=== PATIENT | male | born 1990 | race American Indian/Alaskan Native ===

== ENCOUNTER 2019-07-05 16:19 | Emergency (ER) | payer SELFPAY ==
[2019-07-05] MEDS ORDERED: ACETAMINOPHEN 500 MG TAB PO ONE (19:30)
[2019-07-05] MEDS ORDERED: IBUPROFEN 600 MG TAB PO ONE (19:30)
--- NOTE | 2019-07-05 21:04 | Cat Scan Report ---
CT CERVICAL SPINE: 07/05/2019 INDICATION / CLINICAL INFORMATION: pain, traumatic. COMPARISON: None available. FINDINGS: CT images of the cervical spine were obtained. Images are evaluated in the axial, coronal, and sagit gabriela planes. There is no evidence of acute abnormality. Vertebral body alignment and height is normal. There is no evidence of osseous canal or foraminal narrowing. CRANIOCERVICAL JUNCTION: Unremarkable. PARASPINAL STRUCTURES: No significant abnormality. 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 There is anterior positioning of a flattened and deformed right condylar head with a chronic appearance. IMPRESSION: No acute abnormality. All CT scans at this location are performed using dose reduction to ALARA by means of automated expos ure control. Signer Name: Kai Garg MD Signed: 07/05/2019 9:00 PM Workstation Name: [id number]
--- NOTE | 2019-07-05 21:30 | Emergency Department Report ---
ED Neck Pain/Injury HPI - General Chief Complaint: Neck Pain/Injury Stated Complaint: WEIGHT FELL ON NECK/PAIN Mode of arrival: Ambulatory Limitations: No Limitations - History of Present Illness Initial Comments: Patient is a 29-year-old -[place] male with no past medical history who presents to the ED with complaint of acute onset persistent neck pain after metallic weights but he was lifting at the gymnasium dropped onto his neck 2 weeks ago. Patient states that the pain has been persistent and this patient in the last 5 days the pain has worsened especially with any activity range of m otion. Patient denies loss of consciousness, headache, nausea, vomiting, dizziness, change in vision, fall, chest pain, shortness of breath, numbness and tingling or weakness of upper extremities bilaterally. MD Complaint: neck pain, neck injury, other (Metallic weights fell on neck 2 weeks ago when doing weight lifting) -: Sudden, week(s) (2) Place: [facility] Radiation: right lateral, left lateral Severity: moderate Severity scale (0 -10): 6 Quality: sharp, aching Consistency: constant Improves With: none Worsens With: none Context: direct blow (Metallic weights hit him on his neck when doing weight lifting), lifting Associated Symptoms: none. denies: headache, fever, numbness, tingling, weakness, vertigo, difficulty walking, swollen glands, difficulty swallowing, nausea, vomiting Treatments Prior to Arrival: none - Related Data Previous Rx's Medication Instructions Recorded Last Taken Type Cyclobenzaprine [Flexeril] 10 mg PO Q8H PRN #21 tablet 07/05/19 Unknown Rx Naproxen 500 mg PO Q12H PRN #24 tablet 07/05/19 Unknown Rx Allergies Allergy/AdvReac Type Severity Reaction Status Date / Time No Known Allergies Allergy Unverified 07/05/19 16:34 ED Review of Systems ROS: Stated complaint: WEIGHT FELL ON NECK/PAIN Other details as noted in HPI Constitutional: denies: chills, fever Eyes: denies: eye pain, eye discharge, vision change ENT: denies: ear pain, throat pain Respiratory: denies: cough, shortness of breath, wheezing Cardiovascular: denies: chest pain, palpitations Endocrine: no symptoms reported Gastrointestinal: denies: abdominal pain, nausea, diarrhea Genitourinary: denies: urgency, dysuria Musculoskeletal: arthralgia (neck pain), myalgia. denies: back pain, joint swe lling Skin: denies: rash, lesions Neurological: denies: headache, weakness, paresthesias, confusion, vertigo Psychiatric: denies: anxiety, depression Hematological/Lymphatic: denies: easy bleeding, easy bruising ED Past Medical Hx - Past Medical History Previous Medical History?: No - Surgical History Additional Surgical History: LEFT EYE SURGERY - Social History Smoking Status: Current Every Day Smoker Substance Use Type: Alcohol - Medications Home Medications: Home Medications Medication Instructions Recorded Confirmed Last Taken Type Cyclobenzaprine [Flexeril] 10 mg PO Q8H PRN #21 tablet 07/05/19 Unknown Rx Naproxen 500 mg PO Q12H PRN #24 tablet 07/05/19 Unknown Rx ED Physical Exam - General Limitations: No Limitations General appearance: alert, in no apparent distress - Head Head exam: Present: atraumatic, normocephalic, normal inspection - Eye Eye exam: Present: normal appearance, PERRL, EOMI Pupils: Present: normal accommodation - ENT ENT exam: Present: normal exam, normal orophraynx, mucous membranes moist, TM's normal bilaterally, normal external ear exam - Neck Neck exam: Present: normal inspection, tenderness (palpable cervical paraspinal musculoskeletal tenderness with limited range of motion due to pain). Absent: meningismus, full ROM (due to pain), lymphadenopathy, thyromegaly - Respiratory Respiratory exam: Present: normal lung sounds bilaterally. Absent: respiratory distress, wheezes, rales, rhonchi, stridor, chest wall tenderness, accessory muscle use, decreased breath sounds - Cardiovascular Cardiovascular Exam: Present: regular rate, normal rhythm, normal heart sounds. Absent: systolic murmur, diastolic murmur, rubs, gallop - GI/Abdominal GI/Abdominal exam: Present: soft, normal bowel sounds. Absent: distended, tenderness, guarding, hyperactive bowel sounds, hypoactive bowel sounds, organomegaly, mass - Rectal Rectal exam: Present: deferred - Extremities Exam Extremities exam: Present: normal inspection, full ROM, normal capillary refill - Back Exam Back exam: Present: normal inspection, full ROM - Neurological Exam Neurological exam: Present: alert, oriented X3, CN II-XII intact, normal gait, reflexes normal - Psychiatric Psychiatric exam: Present: normal affect, normal mood - Skin Skin exam: Present: warm, dry, intact, normal color. Absent: rash ED Course Vital Signs 07/05/19 17:19 Temperature 98 F Pulse Rate 84 Respiratory 18 Rate Blood Pressure 141/85 O2 Sat by Pulse 96 Oximetry ED Medical Decision Making - Radiology Data Radiology results: report reviewed, image reviewed Findings [facility] [address] [place] [address] Cat Scan Report Signed Patient: GOPAL HAND MR#: [id number] : 1990 Acct:[id number] Age/Sex: 29 / M ADM Date: 07/05/19 Loc: ED Attending Dr: Ordering Physician: FLOR BYRNE Date of Service: 07/05/19 Procedure(s): CT cervical spine wo con Accession Number(s): [id number] cc: FLOR BYRNE CT CERVICAL SPINE: 07/05/2019 INDICATION / CLINICAL INFORMATION: pain, traumatic. COMPARISON: None available. FINDINGS: CT images of the cervical spine were obtained. Images are evaluated in the axial, coronal, and sagittal planes. There is no evidence of acute abnormality. Vertebral body alignment and height is normal. There is no evidence of osseous canal or foraminal narrowing. CRANIOCERVICAL JUNCTION: Unremarkable. PARASPINAL STRUCTURES: No significant abnormality. Incidental note is made of what appears to be a chronic deformity of the right mandibular condyle and condylar fossa. There is anterior positioning of a flattened and deformed right condylar head with a chronic appearance. IMPRESSION: No acute abnormality. All CT scans at this location are performed using dose reduction to ALARA by means of automated exposure control. Signer Name: Kai Garg MD Signed: 07/05/2019 9:00 PM Workstation Name: [id number] Transcribed By: EMMA Dictated By: Kai Garg MD Electronically Authenticated By: Kai Garg MD Signed Date/Time: 07/05/19 2100 - Medical Decision Making This is a 29-year-old male who presented to the ED with persistent neck pain for 2 weeks after metallic weights hit him on the neck 2 weeks ago at the gymnasium when doing weightlifting. In the ED, patient is alert and oriented 3 and is not in distress. C-spine CT scan without contrast shows no acute cervical disc fractures or subluxations. Patient was treated for pain in the ED and on reevaluation, patient's pain is well controlled with medications. The patient will be sent home on medications including antacid, repaired medications and muscle relaxants, and was advised to follow-up at [facility] in 5-7 days for reevaluation. Patient was also advised to return to the ED immediately if symptoms get worse. - Differential Diagnosis cervical sprain; muscle strain; cervical disc fracture Critical care attestation.: If time is entered above; I have spent that time in minutes in the direct care of this critically ill patient, excluding procedure time. ED Disposition Clinical Impression: Cervical paraspinal muscle spasm Cervical muscle strain Qualifiers: Encounter type: initial encounter Qualified Code(s): S16.1XXA - Strain of muscle, fascia and tendon at neck level, initial encounter Disposition: TO HOME OR SELFCARE Is pt being admited?: No Does the pt Need Aspirin: No Condition: Stable Instructions: Muscle Strain (ED), Cervical Sprain (ED) Additional Instructions: Take medications with food, drink plenty of fluids and follow-up with your primary care physician in 7-10 days for reevaluation. Return to the ED immediately if symptoms get worse. Prescriptions: Cyclobenzaprine [Flexeril] 10 mg PO Q8H PRN #21 tablet PRN Reason: Muscle Spasm Naproxen 500 mg PO Q12H PRN #24 tablet PRN Reason: Pain , Severe (7-10) Referrals: PRIMARY CARE, [Primary Care Provider] - 3-5 Days Time of Disposition: 21:41 Print Language: ITALIAN
[2019-07-05 22:03] VITALS: BP 130/81
== END 2019-07-05 22:04 | disposition home or self-care (01) ==
LOC: ED 16:19
DX: S16.1XXA Strain of muscle, fascia and tendon at neck level, initial encounter (principal); F17.200 Nicotine dependence, unspecified, uncomplicated; Z98.890 Other specified postprocedural states; Z79.899 Other long term (current) drug therapy; W20.8XXA Other cause of strike by thrown, projected or falling object, initial encounter; Y93.89 Activity, other specified; Y92.89 Other specified places as the place of occurrence of the external cause; Y99.8 Other external cause status
CPT/HCPCS: 72125; 99283